=== PATIENT | female | born 1955 | race Two or more races ===

== ENCOUNTER 2022-10-16 09:52 | Outpatient (CLI) | payer OTHER | END 2022-10-16 10:08 | disposition home or self-care (01) | LOC: TOM 09:52 | PROVIDERS: ATTEND Internal Medicine Gastroenterology | DX: K56.609 Unspecified intestinal obstruction, unspecified as to partial versus complete obstruction (principal); K63.5 Polyp of colon; Z12.11 Encounter for screening for malignant neoplasm of colon ==

== ENCOUNTER 2022-10-25 09:08 | Emergency (ER) | payer OTHER ==
[~2022-10-25] VITALS: Ht 167.6 cm; Wt 68.0 kg
== END 2022-10-25 14:52 | disposition home or self-care (01) ==
LOC: ER 09:08
DX: M76.891 Other specified enthesopathies of right lower limb, excluding foot (principal); Z88.8 Allergy status to other drugs, medicaments and biological substances
CPT/HCPCS: 73521; 96372; 99284; J1885